=== PATIENT | male | born 1955 | race Caucasian/White ===

== ENCOUNTER → 2016-11-17 | Outpatient (CLI) | payer OTHER ==
--- NOTE | 2016-11-17 12:24 | MR ---
MRI Brain Without Contrast Indication: Acute right arm weakness. Technique: Sagittal and axial T1, axial T2, FLAIR, susceptibility weighted, and diffusion-weighted im aging. Comparison: None. Findings: Diffusion-weighted imaging is normal. No evidence of acute ischemia. Wang-white matter sign al is normal. An isolated single tiny 2 mm subcortical white matter lesion in the right frontal operc ulum is present on image 15 of the axial FLAIR sequence. No periventricular white matter disease. No intracranial hemorrhage, subdural hematoma, or mass. The ventricular system is normal caliber and mid line. The sagittal sinus and basivertebral arteries have normal black flow-void. The pituitary gland is normal size. The cervicooccipital junction is normal. The paranasal sinuses are clear. Impression: 1. No evidence of ischemia. 2. Tiny nonspecific focus of subcortical white matter disease in the right frontal lobe is unlikely r elated to right arm symptoms. 2. No intracranial hemorrhage or mass. Comment: Results were discussed with Dr. Britany Yuen.
== END ==
LOC: FIMAGING 11:04
PROVIDERS: ATTEND Internal Medicine
DX: M62.81 Muscle weakness (generalized) (principal); Z79.899 Other long term (current) drug therapy

== ENCOUNTER → 2016-11-28 | Outpatient (CLI) | payer OTHER ==
--- NOTE | 2016-11-28 21:02 | MR ---
MRI of the Cervical Spine, Without Contrast INDICATION: Right C5-C6 radiculopathy. TECHNIQUE: Axial and coronal T2 fast spin echo, sagittal T1, STIR, and stacked axial T2-weighted seq uences from the foramen magnum through the superior endplate of T1. COMPARISON: None. FINDINGS: The cervical spine is anatomically aligned. Bone marrow signal is normal except for disko genic Modic changes involving the inferior endplate of C4. No fracture or bone marrow-replacing lesi on. The cervicooccipital junction is normal. The posterior fossa is normal. Paraspinal soft tissue planes are normal. The spinal cord is normal caliber and signal. No gliosis or syrinx. C1-C2: Synovial hypertrophy at the level of the dens results in no central canal narrowing. C2-C3: Minimal facet hypertrophy results in minimal bilateral neural foraminal encroachment. The ce ntral canal is normal. C3-C4: Broad-based osteophyte disk complex results in mild central canal narrowing. Facet hypertrop hy combined with the osteophyte disk complex results in moderate bilateral neural foraminal stenosis. C4-C5: Broad-based osteophyte disk complex results in moderate central canal narrowing and moderate bilateral neural foraminal narrowing, worse right than left. The central canal measures 7 mm AP. Li mited cerebrospinal fluid is present along the ventral and dorsal aspect of the cord at this level. C5-C6: A broad-based osteophyte disk complex results in mild to moderate central canal narrowing and severe right and moderate to severe left neural foraminal narrowing. The central canal measures 7 t o 8 mm AP. C6-C7: A diffuse mild broad-based disk bulge results in mild central canal narrowing and moderate to severe right and mild left neural foraminal narrowing. The central canal measures 8 mm AP. C7-T1: Minimal posterior disk bulge results in minimal central canal narrowing. Facet hypertrophy r esults in mild bilateral neural foraminal narrowing, slightly worse right than left. T1-T2: Normal disk. IMPRESSION: 1. Moderate multilevel degenerative disk disease extending from C3-C4 to C6-C7. 2. Severe right neural foraminal narrowing at C5-C6 due to a broad-based osteophyte disk complex and facet hypertrophy. No disk herniation at this level. 3. Moderate central canal narrowing at C4-C5 due to a broad-based osteophyte disk complex and ligame ntum flavum thickening.
== END ==
LOC: FIMAGING 18:47
PROVIDERS: ATTEND Psychiatry & Neurology Neurology
DX: M50.31 Other cervical disc degeneration, high cervical region (principal); M50.321 Other cervical disc degeneration at C4-C5 level; M50.322 Other cervical disc degeneration at C5-C6 level; M50.323 Other cervical disc degeneration at C6-C7 level

== ENCOUNTER 2017-09-07 05:43 | Day surgery (SDC) | payer OTHER ==
[2017-09-07] MEDS ORDERED: LR 1,000 ML IV ONE ×2 (06:14)
[2017-09-07] MEDS ORDERED: LIDOCAINE 1% 2 ML INJ ID PRN ×2 (06:14)
[2017-09-07 06:41] VITALS: PULSE 68
[2017-09-07] MEDS ORDERED: PROPOFOL/EMULSION 500 MG/50 ML BOTTLE IV ONE ×4 (06:51→07:10)
[2017-09-07] MEDS ORDERED: fentaNYL 100 MCG/2 ML INJ ONE ×2 (06:52)
[2017-09-07] MEDS ORDERED: BUPIVACAINE 0.5% 30 ML SDV ONE ×2 (06:54)
[2017-09-07] MEDS ORDERED: LIDOCAINE 1% 300 MG/30 ML SDV ONE ×2 (06:54)
--- NOTE | 2017-09-07 07:00 | PDANEPAE ---
ANE History of Present Illness 62 year old male w/ ALS presents for vascular port. ANE Past Medical History - Cardiovascular History Hx Hypertension: No Hx Arrhythmias: No Hx Chest Pain: No Hx Coronary Artery / Peripheral Vascular Disease: No Hx CHF / Valvular Disease: Yes Hx Palpitations: No - Pulmonary History Hx COPD: No Hx Asthma/Reactive Airway Disease: No Hx Recent Upper Respiratory Infection: No Hx Oxygen in Use at Home: No Hx Sleep Apnea: No Sleep Apnea Screening Result - Last Documented: Negative Pulmonary History Comment: RECENT OXYGEN TEST AT [facility] ([place], [place]) RESULTS NOT YET IN - Neurologic History Hx Cerebrovascular Accident: No Hx Seizures: No Hx Dementia: No - Endocrine History Hx Diabetes: No Hypothyroid: No Hyperthyroid: No - Renal History Hx Renal Disorders: No - Liver History Hx Hepatic Disorders: No - Neurological & Psychiatric Hx Hx Neurological and Psychiatric Disorders: No Neurological / Psychiatric History Comment: NEW DC OF ACLS 6 MONTHS AGO. PARTIAL RT ARM PARALYSIS - Cancer History Hx Cancer: No - Congenital Disorder History Hx Congenital Disorders: No - GI History Hx Gastrointestinal Disorders: Yes Gastrointestinal History Comment: SWALLOWING DIFFERENT AT TIMES LOTS OF SALIVA - Other Health History Other Health History: GETTING IV MEDICATION EVERY 2 WEEKS VIA PERIPHERAL LINE FOR ALS TREATMENT - Chronic Pain History Chronic Pain: No - Surgical History Prior Surgeries: RT SALIVARY GLAND DRAINED 2003. LT ANT MENISCUS REPAIR. TONSILLECTOMY ANE Review of Systems Review of systems is: negative Review of Systems: - Exercise capacity Exercise capacity: >=4 METS METS (RN): 4 METS ANE Patient History - Allergies Allergies/Adverse Reactions: No Known Allergies Allergy (Verified 01/26/17 16:26) - Home Medications Home medications: home medication list seen and reviewed Home Medications: Radicava DAILY 09/04/17 [Last Taken Unknown] Riluzole BID 09/04/17 [Last Taken Unknown] - NPO status NPO Status: no food or drink >8 hours NPO Since - Liquids (Date): 09/06/17 NPO Since - Liquids (Time): 20:00 NPO Since - Solids (Date): 09/06/17 NPO Since - Solids (Time): 20:00 - Anes Hx Anes Hx: no prior problems - Smoking Hx Smoking Status: Never smoked - Alcohol Use Alcohol Use: Rarely - Family Anes Hx Family Anes Hx: neg - N/A ANE Labs/Vital Signs - Vital Signs Vital Signs: reviewed preoperatively; see RN documention for details Blood Pressure: 139/81 Heart Rate: 68 Respiratory Rate: 16 O2 Sat (%): 93 Height: 182.88 cm Weight: 84.822 kg ANE Physical Exam - Airway Neck exam: FROM Mallampati Score: Class 2 - Pulmonary Pulmonary: no respiratory distress - Cardiovascular Cardiovascular: regular rate and rhythym - ASA Status ASA Status: III ANE Anesthesia Plan Anesthesia Plan: MAC Total IV Anesthesia: Yes
--- NOTE | 2017-09-07 07:04 | PDHPUP ---
History & Physical Update H&P update statement: This history and physical update is based on an assessment of the patient which was completed after admission or registration (within 24 hours), but prior to the surgery/procedure. H&P update: H&P reviewed & patient examined, no change in patient's condition since H&P completed
--- NOTE | 2017-09-07 07:05 | POSTOPPROG ---
Post Op Note Date of Operation: 09/07/17 Surgeon: Thiago Verma Anesthesiologist: Isaías Cox Anesthesia: IV Sedation Pre-op Diagnosis: ALS Post-op Diagnosis: Same Procedure: RIJ Port with US and fluoro Inf/Abcess present in the surg proc area at time of surgery?: No EBL: Minimal Complications: no immediate
[2017-09-07] MEDS ORDERED: MIDAZOLAM 2 MG/2 ML VIAL ONE ×2 (07:10)
[2017-09-07] MEDS ORDERED: LR 500 ML IV PRN ×2 (07:42)
[2017-09-07] MEDS ORDERED: NALOXONE HCL 0.4 MG/ML INJ IVP PRN ×2 (07:42)
[2017-09-07] MEDS ORDERED: HYDROCODONE/APAP 5/325 TAB PO PRN ×2 (07:42)
[2017-09-07] MEDS ORDERED: ONDANSETRON 4 MG/2 ML VIAL IVP PRN ×2 (07:42)
[2017-09-07] MEDS ORDERED: fentaNYL 100 MCG/2 ML INJ IVP PRN ×2 (07:42)
--- NOTE | 2017-09-07 08:17 | GOP ---
[f rep st] OPERATIVE REPORT DATE OF OPERATION: 09/07/2017 SURGEON: Thiago Verma MD ANESTHESIA: MAC. ANESTHESIOLOGIST: Dr. Cox. PREOPERATIVE DIAGNOSIS: Amyotrophic lateral sclerosis. POSTOPERATIVE DIAGNOSIS: Amyotrophic lateral sclerosis. PROCEDURE PERFORMED: Right internal jugular single-lumen PowerPort placement with ultrasound and fluoroscopic guidance. FINDINGS: See below. INDICATIONS: 62-year-old male with ALS. He is undergoing a port placement at this time for anticipated parenteral therapies. DESCRIPTION OF PROCEDURE: Monitored anesthesia was started. The right neck and chest regions were infiltrated with 1% lidocaine and 0.5% Marcaine. The jugular vein was directly punctured with ultrasound guidance. A guidewire was passed into the atrium as confirmed using fluoroscopy. A counterincision was made on the chest wall. The low-profile port was tunneled cephalad. The vein was dilated under direct fluoroscopic visualization. The catheter passed into the atrial junction without resistance. There was good venous blood return on the port withdrawal. There was smooth contouring in the neck as well as satisfactory terminal position above the heart. Hemostasis was assured. The wounds were closed in layers with absorbable suture followed by Dermabond. The patient was taken to the recovery room uneventfully. /[id number]/MODL MTDD
[2017-09-07 08:32] VITALS: RESP 17
--- NOTE | 2017-09-07 08:55 | POSTANESTH ---
Post Anesthetic Evaluation Cardiovascular Status: Normal, Stable, Similar to Pre-Op Cond Respiratory Status: Normal, Stable, Similar to Pre-op Cond. Level of Consciousness/Mental Status: Can Participate in Eval, Alert and Oriented Pain Control: Adequate, Prn Tx Ordered Nausea/Vomiting Control: Adequate, Prn Tx Ordered Complications Possibly Related to Anesthesia: None Noted
[2017-09-07 09:42] VITALS: BP 134/69; O2SAT 94
[2017-09-07 09:44] VITALS: TEMP 97.3
== END 2017-09-07 09:20 | disposition home or self-care (01) ==
LOC: FSGY 05:43
PROVIDERS: ATTEND Surgery
PROC: 02H633Z Insertion of Infusion Device into Right Atrium, Percutaneous Approach (ICD-10-PCS; principal; 2017-09-07 07:15)
PROC: 0JH60XZ Insertion of Tunneled Vascular Access Device into Chest Subcutaneous Tissue and Fascia, Open Approach (ICD-10-PCS; principal; 2017-09-07 07:15)
DX: Z45.2 Encounter for adjustment and management of vascular access device (principal); G12.21 Amyotrophic lateral sclerosis
CPT/HCPCS: C1788; J0171; J1642; J2250; J2704; J3010